=== PATIENT | female | born 1950 | race Two or more races ===

== ENCOUNTER 2024-08-26 14:02 | Emergency (ER) | payer OTHER, MEDICAID ==
[~2024-08-26] VITALS: Ht 149.9 cm; Wt 59.1 kg
[2024-08-26 14:28] VITALS: BP 108/67; PULSE 71; RESP 20; TEMP 98.5; O2SAT 96
[2024-08-26] MEDS: IBUPROFEN 600 MG TAB PO ONE (14:55)
[2024-08-26] MEDS ORDERED: IBUP1TAB5 PO (16:15)
== END 2024-08-26 16:19 | disposition home or self-care (01) ==
LOC: EDBD 14:02 → ER 14:02 → EDSEX 14:02 → ER 16:19
DX: S13.4XXA Sprain of ligaments of cervical spine, initial encounter (principal); S63.502A Unspecified sprain of left wrist, initial encounter; S63.501A Unspecified sprain of right wrist, initial encounter; S40.021A Contusion of right upper arm, initial encounter; I10 Essential (primary) hypertension; Z95.1 Presence of aortocoronary bypass graft; V43.52XA Car driver injured in collision with other type car in traffic accident, initial encounter; Y93.89 Activity, other specified; Y92.488 Other paved roadways as the place of occurrence of the external cause; Y99.8 Other external cause status
CPT/HCPCS: 72040; 73060; 73080; 73100